=== PATIENT | female | born 1960 | race Caucasian/White ===

== ENCOUNTER 2017-12-20 13:25 | Inpatient (IN) | payer MEDICARE ==
[2017-12-20 13:50] VITALS: BMI 30.9
--- NOTE | 2017-12-20 14:05 | PDOC ---
History of Present Illness - General Chief Complaint: Blood Transfusion Stated Complaint: BLOOD TRANFUSION Time Seen by Provider: 12/20/17 14:05 Past History - Past Medical History Allergies/Adverse Reactions: Allergies Allergy/AdvReac Type Severity Reaction Status Date / Time Penicillins Allergy Verified 12/20/17 13:46 - Suicide/Smoking/Psychosocial Hx Smoking History: Former smoker Have you smoked in the past 12 months: Yes If you are a former smoker, when did you quit?: 10/2017 Information on smoking cessation initiated: Yes Hx Alcohol Use: No Drug/Substance Use Hx: No *Physical Exam - Vital Signs Last Vital Signs Temp Pulse Resp BP Pulse Ox 98.1 F 78 16 116/60 96 12/20/17 13:35 12/20/17 13:35 12/20/17 13:35 12/20/17 13:35 12/20/17 13:35 *DC/Admit/Observation/Transfer - Referrals Referrals: Nicko Johnson MD [Primary Care Provider] - - Patient Instructions - Post Discharge Activity
--- NOTE | 2017-12-20 15:01 | PDOC ---
History of Present Illness - General Chief Complaint: Blood Transfusion Stated Complaint: BLOOD TRANFUSION Time Seen by Provider: 12/20/17 14:05 - History of Present Illness Initial Comments: 12/20/17 14:45 57 y/o post-menopausal female presenting to [facility] on referral of PCP with concern for anemia based on outpatient labs. Pt reports she has been feeling weak globally for "the past few months" to the point where she has trouble "walking for more than a few feet." Additionally, she endorses lightheadedness/ dizziness with minimal exertion. Initially, she attributed these symptoms to worsening of her emphysema; she was evaluated by her accessioner last week. She denies change in color or caliber of stool, blood with defecation or urination, vaginal bleeding, nausea, vomiting, abdominal pain, or easily bruising. Endorses a remote history of menorrhagia but last menstrual period was approx. 10 years ago. Pt provided outpatient lab results, which showed a microcytic anemia with a high TIBC with low percent saturation. Past History - Past Medical History Allergies/Adverse Reactions: Allergies Allergy/AdvReac Type Severity Reaction Status Date / Time Penicillins Allergy Verified 12/20/17 13:46 Home Medications: Ambulatory Orders Albuterol Sulfate Inhaler - [Ventolin Hfa Inhaler -] 2 inh PO Q4H PRN 12/20/17 Bupropion HCl [Bupropion HCl Sr] 100 mg PO DAILY 12/20/17 Clonazepam 1 mg PO BID 12/20/17 Meloxicam 7.5 mg PO ASDIR 12/20/17 Naltrexone HCl 25 mg PO DAILY 12/20/17 Omeprazole 40 mg PO DAILY 12/20/17 Quetiapine Fumarate [Seroquel] 100 mg PO DAILY 12/20/17 Tiotropium [place] [Spiriva] 1 inh IH BID 12/20/17 Venlafaxine HCl ER [Effexor Xr -] 150 mg PO DAILY 12/20/17 Anemia: No COPD: Yes (Emphysema) Thyroid Disease: No - Surgical History Other Surgical History: 12/20/17 17:22 . No recent surgeries or hospitalizations. - Reproductive History Comment:: 12/20/17 17:22 Post-menopausal. LMP over 10 years ago. - Suicide/Smoking/Psychosocial Hx Smoking History: Former smoker Have you smoked in the past 12 months: Yes If you are a former smoker, when did you quit?: 10/2017 Information on smoking cessation initiated: Yes Hx Alcohol Use: No Drug/Substance Use Hx: No Review of Systems - Review of Systems Constitutional: Yes: Malaise, Weakness. No: Chills, Diaphoresis, Fever HEENTM: No: Blurred Vision, Recent change in vision, Double Vision Respiratory: Yes: SOB with Exertion. No: Productive cough, Hemoptysis Cardiac (ROS): Yes: Syncope. No: Chest Pain, Edema, Palpitations ABD/GI: Yes: Constipated (chronic problem reportedly secondary to home medications). No: Blood Streaked Bowels, Diarrhea, Nausea, Rectal Bleeding, Vomiting, Tarry Stools : No: Burning, Dysuria, Frequency, Hematuria Musculoskeletal: No: Muscle Pain Integumentary: No: Bruising, Change in Color, Flushing, Pallor, Rash, Sweating Neurological: Yes: Headache, Unsteady Gait Hematologic/Lymphatic: Yes: Anemia. No: Easy Bleeding, Easy Bruising *Physical Exam - Vital Signs Last Vital Signs Temp Pulse Resp BP Pulse Ox 98.1 F 78 16 116/60 96 12/20/17 13:35 12/20/17 13:35 12/20/17 13:35 12/20/17 13:35 12/20/17 13:35 - Physical Exam Comments: 12/20/17 17:26 Adult female in no acute distress. Pt found sitting in hospital wheelchair. Found to be A/Ox4. Answered all questions appropriately and completely. Dressed and groomed appropriately. Unremarkable body habitus. HEENT: negative: Pale Conjunctivae, Scleral Icterus (R), Scleral Icterus (L) Neck: positive: Trachea midline, Normal Thyroid, Supple. negative: Tender, Rigid, Decreased range of motion, Lymphadenopathy (R), Lymphadenopathy (L), Tender midline Respiratory/Chest: positive: Lungs Clear, Normal Breath Sounds. negative: Chest Tender, Respiratory Distress, Accessory Muscle Use Cardiovascular: positive: Regular Rhythm, Regular Rate, S1, S2. negative: Edema , JVD, Murmur, Gallop/S3, Gallop/S4 Gastrointestinal/Abdominal: positive: Soft. negative: Tender, Pulsatile Mass, Distended, Guarding, Tenderness Rectal Exam: positive: heme negative stool, normal exam, normal rectal tone, hemorrhoids (External hemorrhoids ) Neurologic: positive: Fully Oriented, Alert, Normal Mood/Affect, Other ( Ambulating without assitance ) ED Treatment Course - LABORATORY CBC & Chemistry Diagram: 12/20/17 16:45 12/20/17 16:45 Medical Decision Making - Medical Decision Making 57 y/o post-menopausal female complaining of weakness for "a few months." Referred to ER by PCP after found to be anemic on outpatient labs. Vitals unremarkable. Minimally pale conjunctiva appreciated but physical was otherwise unrevealing. Hemacult card negative. CBC, CMP, PT/PTT, Type and Screen, and EKG ordered to further evaluate. CBC revealed microcytic anemia. Hemoglobin of 4.7, which is a trend downward from 5.0 on outpatient labs. 12/20/17 15:58 Discussed risks/benefits of blood transfusion. Pt verbally expressed understanding and signed consent form. Pt further informed she will be admitted to the hospital. She again expressed understanding and agreement. Dr. Nugent obtained telephone consult with Dr. Johnson. Agrees to admit pt for further workup. Discussed plan for admission with pt and . Both verbally expressed understanding and agreement with plan. *DC/Admit/Observation/Transfer Diagnosis at time of Disposition: Anemia Qualifiers: Anemia type: unspecified type Qualified Code(s): D64.9 - Anemia, unspecified - Discharge Dispostion Condition at time of disposition: Unchanged/Unknown Decision to Admit order: Yes - Referrals - Patient Instructions - Post Discharge Activity
--- NOTE | 2017-12-20 15:28 | PDOC ---
Attending Attestation - ED Attending Attestation I have performed the following: I have examined & evaluated the patient, The case was reviewed & discussed with the resident, I agree w/resident's findings & plan - HPI HPI: 12/20/17 16:31 The patient is a 57 year old female, accompanied by , with a significant PMH of COPD, who presents to the emergency department sent in by PCP Dr. Nicko Johnson for anemia. The patient states she has been feeling generalized fatigue for the past couple of months and experiencing worsening shortness of breath. The patient also endorses associated symptoms of lightheadedness and dizziness with exertion. As per patients present at bedside, he states he has noticed the patients skin color to appear more pale than normal which has been a gradual change coordinator the past few months. The patient denies chest pain, palpitations, leg swelling, calf tenderness, headache. Denies fever, chills, nausea, vomit, diarrhea and constipation. Denies dysuria, frequency, urgency and hematuria. Allergies: Penicillins PCP: Dr. Nicko Johnson - Physicial Exam PE: 12/20/17 16:32 General: Well appearing, awake and alert, NAD. HEENT: PERRL, EOMI, pale conjunctiva, aniceteric, moist mucus membranes Neck: neck supple, FROM, no JVD, LAD or masses Lungs: CTAB, normal and even respirations, no respiratory distress Heart: RRR, no murmurs, 2+ peripheral pulses throughout, no peripheral edema Abdomen: soft, NTND, no peritoneal signs. Back: nontender, normal inspection and ROM MSK: no edema, LEBRON x4, ROM intact. No clubbing or cyanosis. normal bulk and tone. Neuro: alert, oriented appropriately; no focal neurologic deficits. Skin: warm and well perfused, cap refill <2 sec, very pale, no lesions or skin changes. <Esau Farris - Last Filed: 12/20/17 16:31> - Resident Resident Name: David Barkley - Medical Decision Making 12/20/17 15:27 57 YOF with postmenopause, COPD presenting with malaise and weakness x 2 months , a/w dizziness and sob and pallor. sent in for anemia workup found on outpatient labs. Vital signs stable wnl. dDx. GIB, anemia, electrolyte/metabolic derangements. will transfuse 2 units prBc for acute anemia with Hb ~5, appears microcytic with low MCV. TxS ordered, consented and discussed risks and benefits. guaiac neg for occult blood. Repeat CBC with H/H 4.11/26, already transfusing. remainder of labs wnl. spoke with Dr. Johnson, admit to service. admit for anemia workup, tx and medical management. pt made aware of impression and plan, agreeable. 12/20/17 17:54 <Lorraine Nugent - Last Filed: 12/20/17 17:56> Heart Score/ECG Review - ECG Impressions Normal ECG: Yes Comment:: 12/20/17 15:31 normal sinus rhythm, at 82 bpm, nonischemic, TWF in AVL, nonspecific TWI in V1- 2 12/20/17 15:32 <Lorraine Nugent - Last Filed: 12/20/17 17:56> Attestations - Attestations 12/20/17 16:33 Documentation prepared by Esau Farris, acting as medical office representative for Lorraine Nugent MD. <Esau Farris - Last Filed: 12/20/17 16:31>
[2017-12-20] MEDS ORDERED: ONDANSETRON *ODT* 4 MG TABLET SL PRN (17:13)
--- NOTE | 2017-12-20 17:13 | HP ---
Admitting History and Physical - Primary Care Physician PCP: Nicko Johnson - Admission Chief Complaint: SENT FROM MY OFFICE WITH HEMOGLOBIN OF 5.0 History of Present Illness: 57 y.o post-menopausal female presenting to [facility] on referral FROM MY OFFICE with concern for anemia. Pt reports she has been feeling weak globally for "the past few months" to the point where she has trouble "walking for more than a few feet." Additionally, she endorses lightheadedness/dizziness with minimal exertion. Initially, she attributed these symptoms to worsening of her emphysema; she was evaluated by her tap grinder last week. She denies change in color or caliber of stool, blood with defecation or urination, vaginal bleeding, nausea, vomiting, abdominal pain, or easily bruising. Endorses a remote history of menorrhagia but last menstrual period was approx. 10 years ago. History Source: Patient - Past Medical History Pulmonary: Yes: COPD Hepatobiliary: Yes: Cirrhosis Additional Past Medical History: HISTORY OF ETOH ABUSE - Smoking History Smoking history: Former smoker Have you smoked in the past 12 months: Yes If you are a former smoker, when did you quit?: 10/2017 - Alcohol/Substance Use Hx Alcohol Use: Yes (QUIT 1 MONTH AGO) Home Medications - Allergies Allergies/Adverse Reactions: Allergies Allergy/AdvReac Type Severity Reaction Status Date / Time Penicillins Allergy Verified 12/20/17 13:46 Review of Systems - Review of Systems Constitutional: reports: Lethargy, Loss of Appetite, Weakness Eyes: reports: No Symptoms HENT: reports: No Symptoms Neck: reports: No Symptoms Cardiovascular: reports: No Symptoms Respiratory: reports: No Symptoms Gastrointestinal: reports: No Symptoms Genitourinary: reports: No Symptoms Musculoskeletal: reports: No Symptoms Integumentary: reports: No Symptoms Neurological: reports: No Symptoms Endocrine: reports: No Symptoms Hematology/Lymphatic: reports: No Symptoms Psychiatric: reports: No Symptoms Physical Examination Vital Signs: Vital Signs Temperature 98.1 F 12/20/17 13:35 Pulse Rate 78 12/20/17 13:35 Respiratory Rate 16 12/20/17 13:35 Blood Pressure 116/60 12/20/17 13:35 O2 Sat by Pulse Oximetry (%) 96 12/20/17 13:35 Constitutional: Yes: Mild Distress Eyes: Yes: WNL HENT: Yes: WNL Neck: Yes: WNL Cardiovascular: Yes: WNL Respiratory: Yes: Cough, Rhonchi Gastrointestinal: Yes: WNL Renal/: Yes: WNL Musculoskeletal: Yes: Muscle Weakness Extremities: Yes: WNL Edema: No Peripheral Pulses WNL: Yes Integumentary: Yes: WNL Wound/Incision: Yes: Clean/Dry Neurological: Yes: WNL ...Motor Strength: WNL Psychiatric: Yes: WNL Problem List - Problems (1) History of ETOH abuse Code(s): Z87.898 - PERSONAL HISTORY OF OTHER SPECIFIED CONDITIONS (2) COPD (chronic obstructive pulmonary disease) Code(s): J44.9 - CHRONIC OBSTRUCTIVE PULMONARY DISEASE, UNSPECIFIED Qualifiers: COPD type: emphysema (3) Dizziness Code(s): R42 - DIZZINESS AND GIDDINESS (4) Fatigue Code(s): R53.83 - OTHER FATIGUE (5) Anemia Code(s): D64.9 - ANEMIA, UNSPECIFIED Qualifiers: Anemia type: unspecified type Qualified Code(s): D64.9 - Anemia, unspecified Assessment/Plan ANEMIA WORKUP R/O ESOPHAGEAL/GI BLEED SONO OF LIVER OCCULT STOOL THIAMINE AND FOLIC ACID STARTED
[2017-12-20 17:19] LABS: BASO % 0.8 % (0-2.0); HEMATOCRIT 16.1 % (32.4-45.2); LYMPH % 22.5 % (8-40); MCHC 28.8 g/dl (32.0-36.0); MEAN PLT VOLUME 8.6 fl (7.5-11.1); MONO % 5.3 % (3.8-10.2); NEUT % 71.4 % (42.8-82.8); PLATELET COUNT 193 K/MM3 (134-434); RBC 2.43 M/mm3 (3.60-5.2); RDW 20.2 % (11.6-15.6); WHITE BLOOD COUNT 4.8 K/mm3 (4.0-10.0)
[2017-12-20 17:25] LABS: HEMOGLOBIN 4.6 GM/dL (10.7-15.3)
[2017-12-20] MEDS ORDERED: ALBUTEROL SO4 2.5/IPRATROPIUM 0.5 INH SOL 3 ML VIAL.NEB. NEB PRN (17:26)
[2017-12-20 17:29] LABS: INR 1.04 (0.82-1.09); PROTHROMBIN TIME (PATIENT) 11.8 SEC (9.7-13.0)
[2017-12-20 17:31] LABS: ACTIVATED PTT 29.3 SECONDS (25.2-36.5)
[2017-12-20 17:40] LABS: ALBUMIN 3.6 g/dl (3.4-5.0); ALK PHOS 124 U/L (45-117); ANION GAP 7 (8-16); BILIRUBIN,TOTAL 0.4 mg/dL (0.2-1.0); BLOOD UREA NITROGEN 13 mg/dL (7-18); CALCIUM 8.4 mg/dL (8.5-10.1); CHLORIDE 110 mmol/L (98-107); CO2 25 mmol/L (21-32); CREATININE 1.2 mg/dL (0.55-1.02); GLUCOSE,RANDOM 104 mg/dL (74-106); POTASSIUM 3.9 mmol/L (3.5-5.1); SGOT/AST 10 U/L (15-37); SGPT/ALT 17 U/L (12-78); SODIUM 142 mmol/L (136-145); TOT PROT 6.8 g/dl (6.4-8.2)
[2017-12-20] MEDS ORDERED: diazePAM 2 MG TABLET ONE (19:33)
[2017-12-20] MEDS: diazePAM 2 MG TABLET PO SCH ×2 (19:37→22:45)
[2017-12-20 20:42] LABS: ANISOCYTOSIS 1+; PLATELET ESTIMATE ADEQUATE
[2017-12-20] MEDS: THIAMINE HCL 100 MG TABLET (FP) PO SCH (22:45)
[2017-12-20] MEDS: BUDESONIDE/FORMETEROL FUMARATE 80/4.5 mcg INHALER IH SCH (22:46)
[2017-12-20] MEDS ORDERED: PANTOPRAZOLE 40 MG TABLET (FP) PO ONE (23:45)
[2017-12-21] MEDS: ACETAMINOPHEN 325 MG TABLET (FP) PO PRN ×2 (00:02→17:16)
[2017-12-21] MEDS: diazePAM 2 MG TABLET PO SCH ×2 (06:03→14:26)
[2017-12-21] MEDS ORDERED: PT OWN MED DRAWER 7, Y5N ONE ×4 (06:48→21:32)
[2017-12-21 07:49] LABS: HEMATOCRIT 22.2 % (32.4-45.2); MCH 22.9 pg (25.7-33.7); MCHC 31.6 g/dl (32.0-36.0); MEAN CELL VOLUME 72.3 fl (80-96); MEAN PLT VOLUME 8.1 fl (7.5-11.1); PLATELET COUNT 159 K/MM3 (134-434); RBC 3.07 M/mm3 (3.60-5.2); RDW 24.2 % (11.6-15.6); WHITE BLOOD COUNT 5.4 K/mm3 (4.0-10.0)
[2017-12-21 07:52] LABS: ALBUMIN 3.2 g/dl (3.4-5.0); CHLORIDE 110 mmol/L (98-107); POTASSIUM 3.8 mmol/L (3.5-5.1); SODIUM 142 mmol/L (136-145)
[2017-12-21 07:57] LABS: ALK PHOS 114 U/L (45-117); ANION GAP 9 (8-16); BILIRUBIN,TOTAL 1.9 mg/dL (0.2-1.0); BLOOD UREA NITROGEN 16 mg/dL (7-18); CALCIUM 8.2 mg/dL (8.5-10.1); CO2 23 mmol/L (21-32); CREATININE 1.1 mg/dL (0.55-1.02); GLUCOSE,RANDOM 106 mg/dL (74-106); SGOT/AST 12 U/L (15-37); SGPT/ALT 16 U/L (12-78); TOT PROT 6.3 g/dl (6.4-8.2)
[2017-12-21] MEDS: BUDESONIDE/FORMETEROL FUMARATE 80/4.5 mcg INHALER IH SCH ×2 (09:26→21:50)
[2017-12-21] MEDS: FOLIC ACID 1 MG TABLET (FP) PO SCH (09:27)
[2017-12-21] MEDS: THIAMINE HCL 100 MG TABLET (FP) PO SCH ×2 (09:27→21:50)
--- NOTE | 2017-12-21 11:40 | EKG ---
Test Reason : Blood Pressure : / mmHG Vent. Rate : 082 BPM Atrial Rate : 082 BPM P-R Int : 198 ms QRS Dur : 094 ms QT Int : 362 ms P-R-T Axes : 049 018 051 degrees QTc Int : 422 ms NORMAL SINUS RHYTHM POSSIBLE LEFT ATRIAL ENLARGEMENT BORDERLINE ECG NO PREVIOUS ECGS AVAILABLE Confirmed by MAURA ROWE, SAEED ([id number]) on 12/21/2017 11:39:51 AM Referred By: Confirmed By:SAEED LORENZO MD
--- NOTE | 2017-12-21 14:10 | ECHO ---
Name: SOLITARIO USNE Exam:Adult Echocardiogram Study Date: 12/21/2017 11:16 AM Reason For Study: CHECK EF Height: 66 in Weight: 195 lb BSA: 2.0 m2 MMode/2D Measurements & Calculations IVSd: 1.1 cm Ao root diam: 2.5 cm EDV(Teich): 148.6 ml LVIDd: 5.5 cm LA dimension: 3.4 cm LVPWd: 0.69 cm Doppler Measurements & Calculations MV E max robert: 88.8 cm/sec MR max robert: 100.8 cm/sec TR max robert: 103.7 cm/sec MV A max robert: 132.0 cm/sec MR max P.1 mmHg TR max P.3 mmHg MV E/A: 0.67 MV dec time: 0.17 sec Med Peak E' Robert: 7.4 cm/sec Med E/e': 12.0 Lat Peak E' Robert: 12.0 cm/sec Lat E/e': 7.4 Procedure A two-dimensional transthoracic echocardiogram with color flow and Doppler was performed. The patient was in normal sinus rhythm during the exam. Left Ventricle The left ventricular size, thickness and function are normal. The left ventricular ejection fraction is normal. E/A reversal consistent with but not diagnostic of poor LV compliance. The left ventricular w all motion is normal. Right Ventricle The right ventricle is grossly normal size. Atria Normal left and right atrial size and function. Mitral Valve There is mild mitral valve thickening. There is no mitral valve stenosis. There is trace to mild mitr al regurgitation. Tricuspid Valve There is mild tricuspid valve thickening. There is no tricuspid stenosis. There is mild tricuspid regurgitation. Right ventricular systolic pressure is normal. Aortic Valve The aortic valve is not well visualized. No hemodynamically significant valvular aortic stenosis. No aortic regurgitation is present. Pulmonic Valve The pulmonic valve is not well visualized. There is no pulmonic valvular stenosis. There is no pulmon ic valvular regurgitation. Great Vessels The aortic root is normal size. Pericardium/Pleura There is no pericardial effusion. Interpretation Summary The patient was in normal sinus rhythm during the exam. The left ventricular size, thickness and function are normal The left ventricular ejection fraction is normal. There is trace to mild mitral regurgitation. E/A reversal consistent with but not diagnostic of poor LV compliance There is mild tricuspid regurgitation. Right ventricular systolic pressure is normal. The left ventricular wall motion is normal. MD Jack Loera 12/21/2017 02:09 PM
--- NOTE | 2017-12-21 15:54 | CONSULT ---
Consult Consult Specialty:: Hematology-oncology Referred by:: Reason for Consultation:: HYPOCHROMIC,MICROCYTIC ANEMIA - History Source History Provided By: Patient - Past Medical History Pulmonary: Yes: COPD Hepatobiliary: Yes: Cirrhosis, Other ("Fatty liver" re patient) ...: No Heme/Onc: Yes: Anemia - Past Surgical History Past Surgical History: Yes: - Alcohol/Substance Use Hx Alcohol Use: Yes (drank 6-8+ beers daily for > 5 years , discontinued months ago) History of Substance Use: reports: Marijuana (occasional "joint") - Smoking History Smoking history: Former smoker Have you smoked in the past 12 months: Yes If you are a former smoker, when did you quit?: smoked from teen age years 1-2 ppd until 3 months ago Home Medications - Allergies Allergies/Adverse Reactions: Allergies Allergy/AdvReac Type Severity Reaction Status Date / Time Penicillins Allergy Verified 12/20/17 13:46 - Home Medications Home Medications: Ambulatory Orders Albuterol Sulfate Inhaler - [Ventolin Hfa Inhaler -] 2 inh PO Q4H PRN 12/20/17 Bupropion HCl [Bupropion HCl Sr] 100 mg PO DAILY 12/20/17 Clonazepam 1 mg PO BID 12/20/17 Meloxicam 7.5 mg PO ASDIR 12/20/17 Naltrexone HCl 25 mg PO DAILY 12/20/17 Omeprazole 40 mg PO DAILY 12/20/17 Quetiapine Fumarate [Seroquel] 100 mg PO DAILY 12/20/17 Tiotropium [place] [Spiriva] 1 inh IH BID 12/20/17 Venlafaxine HCl ER [Effexor Xr -] 150 mg PO DAILY 12/20/17 Family Disease History - Family Disease History Family Disease History: Heart Disease: Mother (HBP) Other Family History: maternal uncle - leukemia Review of Systems - Review of Systems Constitutional: reports: Malaise, Weakness. denies: Fever, Loss of Appetite, Unintentional Wgt. Loss Eyes: denies: Blind Spots, Double Vision HENT: denies: Difficult Swallowing, Epistaxis, Throat Pain, Other Neck: denies: Tenderness Cardiovascular: reports: Shortness of Breath. denies: Chest Pain Respiratory: reports: Exercise Intolerance, SOB, SOB on Exertion. denies: Hemoptysis Gastrointestinal: reports: Other (colonoscopy and EGD > 5 years earlier - reportedly unremarkable). denies: Abdominal Pain, Constipation, Diarrhea, Melena, Nausea, Vomiting, Vomiting Blood Genitourinary: reports: Other (no PAP > 10 years). denies: Burning, Dysuria, Flank Pain Breasts: reports: Other (no mammography > 20 years) Musculoskeletal: reports: Muscle Weakness Integumentary: reports: Bruising Neurological: reports: Dizziness, Weakness, Other (weak , dizzy, light -headed near syncope and fall- broken tooth) Endocrine: reports: No Symptoms Hematology/Lymphatic: denies: Easily Bruised, Excessive Bleeding, Swollen Glands Psychiatric: reports: No Symptoms Physical Exam Vital Signs: Vital Signs Temperature 97.8 F 12/21/17 09:00 Pulse Rate 69 12/21/17 09:00 Respiratory Rate 18 12/21/17 09:00 Blood Pressure 120/75 12/21/17 09:00 O2 Sat by Pulse Oximetry (%) 98 12/21/17 09:00 Constitutional: Yes: No Distress Eyes: Yes: PERRL. No: Diplopia, Ptosis, Sclera Icterus HENT: Yes: Atraumatic, Normocephalic. No: Epistaxis, Hoarseness, Thrush, Tonsillar Exudate Neck: Yes: Supple, Trachea Midline. No: Lymphadenopathy, Tenderness, Thyromegaly Cardiovascular: Yes: Regular Rate and Rhythm Respiratory: Yes: Diminished, Rhonchi Gastrointestinal: Yes: Soft. No: Hepatomegaly, Melena, Splenomegaly Renal/: No: CVA Tenderness - Left, CVA Tenderness - Right Breast(s): Yes: WNL, Left, Right Musculoskeletal: No: Joint Stiffness, Joint Swelling, Muscle Pain, Muscle Weakness Extremities: Yes: WNL. No: Calf Tenderness, Cyanosis Neurological: Yes: Weakness ...Motor Strength: WNL Psychiatric: Yes: WNL Labs: CBC, BMP 12/21/17 06:48 12/21/17 06:48 Problem List - Problems (1) History of ETOH abuse Assessment/Plan: Admits in past for minimum of 5 years 6- beers/ day. Discontinued 3 months earlier Code(s): Z87.898 - PERSONAL HISTORY OF OTHER SPECIFIED CONDITIONS (2) Chronic blood loss anemia Assessment/Plan: Has received 2 units of packed cells to date. Will receive additional packed cells. For additional screening tests. Code(s): D50.0 - IRON DEFICIENCY ANEMIA SECONDARY TO BLOOD LOSS (CHRONIC) (3) Anemia Assessment/Plan: Presents with hypo/micro anemia.No history of melena, hematochezia, , State Inspector blood loss. Will check for thalassemia and for celiac disease as contributing factors. Needs GI follow up. Was taking motrin- 800 mg 2-3 x daily after sustaining fall and breaking teeth over past week prior to admisssion. Will order IV venofer Code(s): D64.9 - ANEMIA, UNSPECIFIED Qualifiers: Anemia type: unspecified type Qualified Code(s): D64.9 - Anemia, unspecified
[2017-12-21] MEDS ORDERED: IRON SUCROSE INJECTION 200 MG in SODIUM CHLORIDE 90 ML IVPB ONE ×2 (16:30→20:30)
[2017-12-21] MEDS ORDERED: ALBUTEROL SO4 8 GM HFA INHALER IH PRN (16:49)
--- NOTE | 2017-12-21 16:53 | PN ---
Progress Note, Physician Chief Complaint: AWAKE ALERT MILD DISTRESS - Current Medication List Current Medications: Active Medications Acetaminophen (Tylenol -) 650 mg PO Q6H PRN PRN Reason: FEVER Last Admin: 12/21/17 00:02 Dose: 650 mg Albuterol Sulfate (Ventolin Hfa Inhaler -) 2 puff IH Q4H PRN PRN Reason: SHORT OF BREATH/WHEEZING Albuterol/Ipratropium (Duoneb -) 1 amp NEB Q6H PRN PRN Reason: SHORTNESS OF BREATH Budesonide/Formoterol Fumarate (Symbicort 80/4.5mcg -) 2 puff IH BID [facility] Last Admin: 12/21/17 09:26 Dose: 2 puff Bupropion HCl (Wellbutrin -) 100 mg PO BID [facility] Clonazepam (Klonopin -) 1 mg PO BID [facility] Diazepam (Valium -) 2 mg PO TID [facility] Last Admin: 12/21/17 14:26 Dose: 2 mg Folic Acid (Folic Acid -) 1 mg PO DAILY [facility] Last Admin: 12/21/17 09:27 Dose: 1 mg Iron Sucrose 200 mg/ Sodium (Chloride) 100 mls @ 200 mls/hr IVPB ONCE ONE Stop: 12/21/17 16:59 Nadolol (Corgard -) 40 mg PO DAILY [facility] Naltrexone HCl (Revia -) 50 mg PO DAILY [facility] Ondansetron HCl (Zofran Odt -) 4 mg SL Q6H PRN PRN Reason: NAUSEA AND/OR VOMITING Pantoprazole Sodium (Protonix Iv) 40 mg IVPUSH ONCE ONE Stop: 12/21/17 17:01 Pantoprazole Sodium (Protonix Packets For Oral Suspension -) 40 mg PO DAILY [facility] Quetiapine Fumarate (Seroquel -) 100 mg PO HS [facility] Thiamine HCl (Vitamin B1 -) 100 mg PO BID [facility] Last Admin: 12/21/17 09:27 Dose: 100 mg Tiotropium [place] (Spiriva -) 1 puff IH DAILY [facility] - Objective Vital Signs: Vital Signs Temperature 98.2 F 12/21/17 14:40 Pulse Rate 84 12/21/17 14:40 Respiratory Rate 22 12/21/17 14:40 Blood Pressure 134/84 12/21/17 14:40 O2 Sat by Pulse Oximetry (%) 98 12/21/17 09:00 Constitutional: Yes: Mild Distress Eyes: Yes: WNL HENT: Yes: WNL Neck: Yes: WNL Cardiovascular: Yes: WNL Respiratory: Yes: WNL Gastrointestinal: Yes: WNL Genitourinary: Yes: WNL Musculoskeletal: Yes: WNL Extremities: Yes: WNL Edema: No Peripheral Pulses WNL: Yes Integumentary: Yes: WNL Wound/Incision: Yes: Clean/Dry Neurological: Yes: WNL ...Motor Strength: WNL Psychiatric: Yes: WNL Labs: CBC, BMP 12/21/17 06:48 12/21/17 06:48 INR, PTT INR 1.04 (0.82-1.09) 12/20/17 16:45 Problem List - Problems (1) History of ETOH abuse Code(s): Z87.898 - PERSONAL HISTORY OF OTHER SPECIFIED CONDITIONS (2) COPD (chronic obstructive pulmonary disease) Code(s): J44.9 - CHRONIC OBSTRUCTIVE PULMONARY DISEASE, UNSPECIFIED Qualifiers: COPD type: emphysema (3) Dizziness Code(s): R42 - DIZZINESS AND GIDDINESS (4) Fatigue Code(s): R53.83 - OTHER FATIGUE (5) Anemia Code(s): D64.9 - ANEMIA, UNSPECIFIED Qualifiers: Anemia type: unspecified type Qualified Code(s): D64.9 - Anemia, unspecified (6) Anxiety Code(s): F41.9 - ANXIETY DISORDER, UNSPECIFIED Assessment/Plan TRANSFUSE PRBC 2 UNITS NOW PPI IV X 1 THEN PO DAILY GI CONSULT NSAID INDUCED GI BLEED?? LIVER DISEASE FROM ETOH?? HEME WORKUP APPRECIATED OOB TO CHAIR PSYCH MEDS RESTARTED
[2017-12-21] MEDS ORDERED: PANTOPRAZOLE SODIUM 40 MG VIAL IVPUSH ONE ×2 (17:00→20:30)
[2017-12-21] MEDS ORDERED: diazePAM 2 MG TABLET PO PRN (17:20)
--- NOTE | 2017-12-21 18:34 | CON.GI ---
Consult Consult Specialty:: GI Referred by:: Dr. Johnson Reason for Consultation:: Anemia - History of Present Illness Chief Complaint: Fatigue History of Present Illness: 57F admitted for evaluation of anemia. Has been extremely fatigued over the last month. Hgb was 4.6, received 2 U PRBC hgb is 7 and is to receive 2 more units of PRBC. She denies overt bleeding or melena. She has been taking ibuprofen 800mg intermittently over the last few weeks because she has been having dental work and meloxicam is listed on her home medication list. She has two extremely loose long front lower teeth and was due to have them extracted this coming tuay. She alludes to having EGD and colonoscopy 5 years ago in [place] that were "OK". There is no family history of colorectal cancer or other GI malignancy. Stool guaiac negative in the ER. She was constipated and was given a fleet enema today with result - Past Medical History Cardio/Vascular: Yes: HTN Pulmonary: Yes: COPD Hepatobiliary: Yes: Cirrhosis, Other ("Fatty liver" re patient) ...: No - Past Surgical History Past Surgical History: Yes: - Alcohol/Substance Use Hx Alcohol Use: Yes (drank 6-8+ beers daily for > 5 years , discontinued months ago) History of Substance Use: reports: Marijuana (occasional "joint") - Smoking History Smoking history: Former smoker Have you smoked in the past 12 months: Yes If you are a former smoker, when did you quit?: smoked from teen age years 1-2 ppd until 3 months ago - Social History Usual Living Arrangement: Alone ADL: Independent Occupation: Worked in sales: now on disability Place of : [facility] History of Recent Travel: No Home Medications - Allergies Allergies/Adverse Reactions: Allergies Allergy/AdvReac Type Severity Reaction Status Date / Time Penicillins Allergy Verified 12/20/17 13:46 - Home Medications Home Medications: Ambulatory Orders Albuterol Sulfate Inhaler - [Ventolin Hfa Inhaler -] 2 inh PO Q4H PRN 12/20/17 Bupropion HCl [Bupropion HCl Sr] 100 mg PO DAILY 12/20/17 Clonazepam 1 mg PO BID 12/20/17 Meloxicam 7.5 mg PO ASDIR 12/20/17 Naltrexone HCl 25 mg PO DAILY 12/20/17 Omeprazole 40 mg PO DAILY 12/20/17 Quetiapine Fumarate [Seroquel] 100 mg PO DAILY 12/20/17 Tiotropium [place] [Spiriva] 1 inh IH BID 12/20/17 Venlafaxine HCl ER [Effexor Xr -] 150 mg PO DAILY 12/20/17 Family Disease History - Family Disease History Family Disease History: Heart Disease: Mother (HBP), Other: Father (alive: healthy), Sister (2, healthy), Son (1, healthy), Daughter (1, healthy) Other Family History: maternal uncle - leukemia. No family history of colorectal cancer or other GI malignancy Review of Systems - Review of Systems Constitutional: reports: Weakness Cardiovascular: denies: Chest Pain Respiratory: denies: Cough Gastrointestinal: reports: Constipation. denies: Abdominal Pain, Diarrhea, Melena, Rectal Bleeding, Vomiting, Vomiting Blood Physical Exam-GI Vital Signs: Vital Signs Temperature 98.2 F 12/21/17 14:40 Pulse Rate 84 12/21/17 14:40 Respiratory Rate 22 12/21/17 14:40 Blood Pressure 134/84 12/21/17 14:40 O2 Sat by Pulse Oximetry (%) 98 12/21/17 09:00 Constitutional: Yes: Calm Eyes: No: Sclera Icterus Cardiovascular: Yes: Regular Rate and Rhythm, Murmur (2/6 systolic murmur at the LSB) Respiratory: Yes: CTA Bilaterally Gastrointestinal Inspection: Yes: Distention ...Auscultate: Yes: Normoactive Bowel Sounds ...Palpate: No: Hepatomegaly, Splenomegaly, Tenderness ...Percussion: No: Tympanitic ...Rectal Exam: Yes: Other (Instructor Creeler present: indurated external skin tags, No masses palpated, brown stool guaiac negative) Edema: No (No LE edema) Neurological: Yes: Alert Labs: CBC, BMP 12/21/17 06:48 12/21/17 06:48 INR, PTT INR 1.04 (0.82-1.09) 12/20/17 16:45 Problem List - Problems (1) Anemia Assessment/Plan: Normocytic anemia: guaiac negative on exam without an overt history of GI bleeding: Bu history it sounds as though this has been a slow, ongoing process over some time now as opposed to Discussed EGD and colonoscopy to exclude intraluminal pathology. We discussed potential risks of the procedures like but not limiuted to bleeding, perforation requiring surgery to repair, infection and sedation medication effects, all of which could be potentially life threatening. She has agreed to the procedures. My main concern performing EGD at this time are the two long, extremely loose front lower teeth that she has. They would be at a high risk to break or dislodge with bite block placement. As there has been no active bleeding history I would propose performing inpatient colonoscopy, having her proceed with teeth extraction this coming tuesday and then proceed with outpatient EGD. Would avoid NSAIDs Continue Protonix 40mg once daily for now Bowel prep 12/22 for colonoscopy 12/23 Heme evaluation Code(s): D64.9 - ANEMIA, UNSPECIFIED Qualifiers: Anemia type: unspecified type Qualified Code(s): D64.9 - Anemia, unspecified
[2017-12-21] MEDS: buPROPion HCL 100 MG TABLET PO SCH (21:51)
[2017-12-21] MEDS: QUEtiapine FUMARATE 50 MG TABLET PO SCH (21:51)
[2017-12-21] MEDS: clonazePAM 0.5 MG TABLET PO SCH (21:52)
[2017-12-22 07:38] LABS: BASO % 1.1 % (0-2.0); EOS % 0.1 % (0-4.5); HEMATOCRIT 26.5 % (32.4-45.2); HEMOGLOBIN 8.8 GM/dL (10.7-15.3); LYMPH % 22.7 % (8-40); MCH 24.1 pg (25.7-33.7); MCHC 33.2 g/dl (32.0-36.0); MEAN CELL VOLUME 72.6 fl (80-96); MEAN PLT VOLUME 8.2 fl (7.5-11.1); MONO % 6.7 % (3.8-10.2); NEUT % 69.4 % (42.8-82.8); PLATELET COUNT 151 K/MM3 (134-434); RBC 3.65 M/mm3 (3.60-5.2); RDW 22.2 % (11.6-15.6); RETICULOCYTES 2.26 % (0.5-1.5); WHITE BLOOD COUNT 5.1 K/mm3 (4.0-10.0)
[2017-12-22] MEDS ORDERED: PT OWN MED DRAWER 7, Y5N ONE (09:59)
[2017-12-22] MEDS: TIOTROPIUM BROMIDE 18 MCG CAPSULES IH SCH (10:44)
[2017-12-22] MEDS: NALTREXONE HCL 50 MG TABLET PO SCH (10:45)
[2017-12-22] MEDS: THIAMINE HCL 100 MG TABLET (FP) PO SCH ×2 (10:46→21:47)
[2017-12-22] MEDS: PANTOPRAZOLE SOD 40 MG SUSPENSION PACKET PO SCH (10:46)
[2017-12-22] MEDS: FOLIC ACID 1 MG TABLET (FP) PO SCH (10:46)
[2017-12-22] MEDS: clonazePAM 0.5 MG TABLET PO SCH ×2 (10:47→21:47)
[2017-12-22] MEDS: BUDESONIDE/FORMETEROL FUMARATE 80/4.5 mcg INHALER IH SCH ×2 (10:47→21:48)
[2017-12-22] MEDS: buPROPion HCL 100 MG TABLET PO SCH ×2 (10:48→21:48)
[2017-12-22] MEDS: ACETAMINOPHEN 325 MG TABLET (FP) PO PRN ×2 (10:50→22:23)
[2017-12-22] MEDS: NADOLOL 20 MG TABLET (FP) PO SCH (10:50)
--- NOTE | 2017-12-22 11:10 | PN ---
Progress Note, Physician Chief Complaint: SCHEDULED FOR COLONOSCOPY TOMORROW C/O RECTAL HEMMROID PAIN - Current Medication List Current Medications: Active Medications Acetaminophen (Tylenol -) 650 mg PO Q6H PRN PRN Reason: FEVER Last Admin: 12/22/17 10:50 Dose: 650 mg Albuterol Sulfate (Ventolin Hfa Inhaler -) 2 puff IH Q4H PRN PRN Reason: SHORT OF BREATH/WHEEZING Albuterol/Ipratropium (Duoneb -) 1 amp NEB Q6H PRN PRN Reason: SHORTNESS OF BREATH Bisacodyl (Dulcolax -) 20 mg PO ONCE ONE Stop: 12/22/17 13:01 Budesonide/Formoterol Fumarate (Symbicort 80/4.5mcg -) 2 puff IH BID [facility] Last Admin: 12/22/17 10:47 Dose: 2 puff Bupropion HCl (Wellbutrin -) 100 mg PO BID [facility] Last Admin: 12/22/17 10:48 Dose: 100 mg Clonazepam (Klonopin -) 1 mg PO BID [facility] Last Admin: 12/22/17 10:47 Dose: 1 mg Diazepam (Valium -) 2 mg PO Q8H PRN PRN Reason: AGITATION Folic Acid (Folic Acid -) 1 mg PO DAILY [facility] Last Admin: 12/22/17 10:46 Dose: 1 mg Iron Sucrose 200 mg/ Sodium (Chloride) 250 mls @ 250 mls/hr IVPB ONCE ONE Stop: 12/22/17 12:06 Nadolol (Corgard -) 40 mg PO DAILY [facility] Last Admin: 12/22/17 10:50 Dose: 40 mg Naltrexone HCl (Revia -) 50 mg PO DAILY [facility] Last Admin: 12/22/17 10:45 Dose: 50 mg Ondansetron HCl (Zofran Odt -) 4 mg SL Q6H PRN PRN Reason: NAUSEA AND/OR VOMITING Pantoprazole Sodium (Protonix Packets For Oral Suspension -) 40 mg PO DAILY [facility] Last Admin: 12/22/17 10:46 Dose: 40 mg Quetiapine Fumarate (Seroquel -) 100 mg PO HS [facility] Last Admin: 12/21/17 21:51 Dose: 100 mg Thiamine HCl (Vitamin B1 -) 100 mg PO BID [facility] Last Admin: 12/22/17 10:46 Dose: 100 mg Tiotropium [place] (Spiriva -) 1 puff IH DAILY [facility] Last Admin: 12/22/17 10:44 Dose: 1 puff - Objective Vital Signs: Vital Signs Temperature 98.5 F 12/22/17 06:30 Pulse Rate 100 H 12/22/17 09:30 Respiratory Rate 18 12/22/17 09:30 Blood Pressure 130/80 12/22/17 09:30 O2 Sat by Pulse Oximetry (%) 98 12/21/17 21:00 Constitutional: Yes: Mild Distress Eyes: Yes: WNL HENT: Yes: WNL Neck: Yes: WNL Cardiovascular: Yes: WNL Respiratory: Yes: WNL Gastrointestinal: Yes: WNL Genitourinary: Yes: WNL Musculoskeletal: Yes: WNL Extremities: Yes: WNL Edema: No Peripheral Pulses WNL: Yes Integumentary: Yes: WNL Wound/Incision: Yes: Clean/Dry Neurological: Yes: WNL ...Motor Strength: WNL Psychiatric: Yes: Other Labs: CBC, BMP 12/22/17 06:30 12/21/17 06:48 INR, PTT INR 1.04 (0.82-1.09) 12/20/17 16:45 Problem List - Problems (1) History of ETOH abuse Code(s): Z87.898 - PERSONAL HISTORY OF OTHER SPECIFIED CONDITIONS (2) COPD (chronic obstructive pulmonary disease) Code(s): J44.9 - CHRONIC OBSTRUCTIVE PULMONARY DISEASE, UNSPECIFIED Qualifiers: COPD type: emphysema (3) Dizziness Code(s): R42 - DIZZINESS AND GIDDINESS (4) Fatigue Code(s): R53.83 - OTHER FATIGUE (5) Anemia Code(s): D64.9 - ANEMIA, UNSPECIFIED Qualifiers: Anemia type: unspecified type Qualified Code(s): D64.9 - Anemia, unspecified (6) Anxiety Code(s): F41.9 - ANXIETY DISORDER, UNSPECIFIED Assessment/Plan COLONOSCOPY IN MORNING PAIN CONTROL BEHAVIORAL MEDS RESTARTED NPO PAST MIDNIGHT
[2017-12-22] MEDS ORDERED: IRON SUCROSE INJECTION 200 MG in SODIUM CHLORIDE 90 ML IVPB ONE (11:30)
[2017-12-22] MEDS ORDERED: BISACODYL 5 MG TABLET.DR (FP) PO ONE (13:00)
[2017-12-22] MEDS ORDERED: PEG3350/SOD SULF,BICARB,CL/KCL 4,000 ML SOLN.RECON PO ONE (15:00)
[2017-12-22] MEDS ORDERED: oxyCODONE HCL 5 MG TABLET PO PRN (16:51)
[2017-12-22] MEDS ORDERED: BENZOCAINE 20 % GEL 9 GM TUBE MM PRN (17:56)
[2017-12-22] MEDS: QUEtiapine FUMARATE 50 MG TABLET PO SCH (21:47)
[2017-12-22] MEDS: CLINDAMYCIN HCL 150 MG CAPSULE (FP) PO SCH (23:58)
[2017-12-23] MEDS: CLINDAMYCIN HCL 150 MG CAPSULE (FP) PO SCH ×2 (05:10→11:28)
[2017-12-23] MEDS: ACETAMINOPHEN 325 MG TABLET (FP) PO PRN ×2 (06:12→11:28)
[2017-12-23 08:27] LABS: HEMATOCRIT 28.3 % (32.4-45.2); HEMOGLOBIN 9.1 GM/dL (10.7-15.3); MCH 23.8 pg (25.7-33.7); MCHC 32.2 g/dl (32.0-36.0); MEAN PLT VOLUME 8.7 fl (7.5-11.1); PLATELET COUNT 155 K/MM3 (134-434); RBC 3.83 M/mm3 (3.60-5.2); RDW 22.4 % (11.6-15.6); WHITE BLOOD COUNT 5.3 K/mm3 (4.0-10.0)
[2017-12-23] MEDS ORDERED: PT OWN MED DRAWER 7, Y5N ONE ×2 (09:40→10:02)
[2017-12-23] MEDS: TIOTROPIUM BROMIDE 18 MCG CAPSULES IH SCH (09:43)
[2017-12-23] MEDS: clonazePAM 0.5 MG TABLET PO SCH (09:43)
[2017-12-23] MEDS: FOLIC ACID 1 MG TABLET (FP) PO SCH (09:43)
[2017-12-23] MEDS: THIAMINE HCL 100 MG TABLET (FP) PO SCH (09:44)
[2017-12-23] MEDS: PANTOPRAZOLE SOD 40 MG SUSPENSION PACKET PO SCH (09:44)
[2017-12-23] MEDS: NALTREXONE HCL 50 MG TABLET PO SCH (09:45)
[2017-12-23] MEDS: BUDESONIDE/FORMETEROL FUMARATE 80/4.5 mcg INHALER IH SCH (09:45)
[2017-12-23] MEDS: NADOLOL 20 MG TABLET (FP) PO SCH (09:46)
[2017-12-23] MEDS: buPROPion HCL 100 MG TABLET PO SCH (09:46)
--- NOTE | 2017-12-23 14:08 | DS ---
Physical Examination Vital Signs: Vital Signs Temperature 97.7 F 12/23/17 09:00 Pulse Rate 70 12/23/17 09:00 Respiratory Rate 18 12/23/17 09:00 Blood Pressure 127/83 12/23/17 09:00 O2 Sat by Pulse Oximetry (%) 96 12/22/17 21:00 Findings/Remarks: PREP WAS POOR FOR COLONOSCOPY, PATIENT WOULD LIKE TO LEAVE WILL RETRY OUT PATIENT Constitutional: Yes: Mild Distress Eyes: Yes: WNL HENT: Yes: WNL Neck: Yes: WNL Cardiovascular: Yes: WNL Respiratory: Yes: WNL Gastrointestinal: Yes: WNL Renal/: Yes: WNL Musculoskeletal: Yes: WNL Extremities: Yes: WNL Edema: No Peripheral Pulses WNL: Yes Integumentary: Yes: WNL Wound/Incision: Yes: Clean/Dry Neurological: Yes: WNL ...Motor Strength: WNL Psychiatric: Yes: Other Labs: CBC, BMP 12/23/17 07:05 12/21/17 06:48 Discharge Summary Reason For Visit: ANEMIA Current Active Problems Anemia (Acute) Anxiety (Acute) COPD (chronic obstructive pulmonary disease) (Acute) Chronic blood loss anemia (Acute) Dizziness (Acute) Fatigue (Acute) History of ETOH abuse (Acute) Procedures: Principal: TRANSFUSED PRBC, Hospital Course: ADMITTED GI BLEED, ACUTE ANEMIA, PREPPED FOR COLONOSCOPY HOWEVER POOR PREP AND GI COULD NOT COMPLETE TEST. EGD UNABLE TO PERFORM BECAUSE OF LOOSE FRONT TEETH. WILL RESCHEDULE AFTER DENTIST REMOVES TEETH NEXT WEEK, SCHEDULE OUTPATIENT LAB CHECK IN 3 DAYS MY OFFICE Condition: Unchanged/Unknown - Instructions Diet, Activity, Other Instructions: SEE DR JOHNSON TUESDAY DR ARN[facility] FOR GI WORKUP Referrals: Konstantin Arnold MD [Staff Physician] - Nicko Johnson MD [Primary Care Provider] - Disposition: HOME - Home Medications Comprehensive Discharge Medication List: Ambulatory Orders Albuterol Sulfate Inhaler - [Ventolin HFA Inhaler -] 2 inh PO Q4H PRN 12/20/17 Bupropion HCl [Bupropion HCl Sr] 100 mg PO DAILY 12/20/17 Clonazepam 1 mg PO BID 12/20/17 Naltrexone HCl 25 mg PO DAILY 12/20/17 Omeprazole 40 mg PO DAILY 12/20/17 Quetiapine Fumarate [Seroquel] 100 mg PO DAILY 12/20/17 Tiotropium [place] [Spiriva] 1 inh IH BID 12/20/17 Venlafaxine HCl ER [Effexor Xr -] 150 mg PO DAILY 12/20/17 Clindamycin [Cleocin -] 150 mg PO Q6H 12/22/17 Benzocaine Oral Gel [Anbesol -] 1 applic MM Q2H PRN #30 tube 12/23/17
[2017-12-23 15:18] VITALS: BP 143/71; PULSE 67; TEMP 97.9
[2017-12-24 00:16] LABS: GLIADIN ANTIBODY IGA 12 units (0-19); GLIADIN ANTIBODY IGG 3 units (0-19); TRANSGLUTAMINASE IGG < 2 U/mL (0-5)
== END 2017-12-23 15:39 | disposition home or self-care (01) | DRG 812 ==
LOC: JER 13:25 → JERBED 15:31 → J5S 21:30
PROVIDERS: ADMIT Family Medicine; ATTEND Family Medicine
PROC: 30233N1 Transfusion of Nonautologous Red Blood Cells into Peripheral Vein, Percutaneous Approach (ICD-10-PCS; principal; 2017-12-20)
DX: D50.0 Iron deficiency anemia secondary to blood loss (chronic) (principal); J44.9 Chronic obstructive pulmonary disease, unspecified; D50.9 Iron deficiency anemia, unspecified; Z87.891 Personal history of nicotine dependence; K70.30 Alcoholic cirrhosis of liver without ascites; F10.11 Alcohol abuse, in remission
CPT/HCPCS: 36415; 36430; 76700-TC; 80053; 82272; 82607; 82728; 82746; 82784; 83010; 83516; 83615; 84439; 84443; 85025; 85027; 85044; 85610; 85730; 86850; 86900; 86901; 86922; 93005; 93010; 93306-TC; 99282-25; J1756; P9038; P9058

== ENCOUNTER 2020-11-14 10:39 | Day surgery (SDC) | payer MEDICARE, OTHER ==
[2020-11-14 11:56] VITALS: BP 124/85; PULSE 93; TEMP 97.8
[2020-11-14] MEDS ORDERED: FERRIC CARBOXYMALTOSE 750 MG in SODIUM CHLORIDE 250 ML IVPB ONE (12:00)
== END 2020-11-14 14:40 | disposition home or self-care (01) ==
LOC: FINFUSION 10:39 → FM/S 10:45 → FINFUSION 14:40
PROVIDERS: ATTEND Family Medicine
PROC: 3E023GC Introduction of Other Therapeutic Substance into Muscle, Percutaneous Approach (ICD-10-PCS; principal; 2020-11-14)
DX: D50.9 Iron deficiency anemia, unspecified (principal)
CPT/HCPCS: 96365; J1439

== ENCOUNTER 2020-11-21 11:00 | Day surgery (SDC) | payer OTHER ==
[2020-11-21 11:26] VITALS: BP 153/95; PULSE 89; TEMP 97.7
[2020-11-21] MEDS ORDERED: FERRIC CARBOXYMALTOSE 750 MG in SODIUM CHLORIDE 250 ML IVPB ONE (11:40)
== END 2020-11-21 12:45 | disposition home or self-care (01) ==
LOC: FINFUSION 11:00 → FM/S 11:04 → FINFUSION 12:45
PROVIDERS: ATTEND Family Medicine
PROC: 3E033GC Introduction of Other Therapeutic Substance into Peripheral Vein, Percutaneous Approach (ICD-10-PCS; principal; 2020-11-21)
DX: D50.9 Iron deficiency anemia, unspecified (principal)
CPT/HCPCS: 96365; J1439